=== PATIENT | male | born 1980 | race Hispanic/Latino ===

== ENCOUNTER → 2018-04-14 | Day surgery (SDC) | payer BC ==
[~2018-04-14] VITALS: Ht 160 cm; Wt 81.6 kg
[~2018-04-14] MED LIST: BENZOCAINE 20% SPR 60 ML CAN ONE; FENTANYL CITRATE/PF 100MCG/2 ML INJ ONE; LIDOCAINE HCL 2% LOCAL INJ 5 ML SDV VIAL INJ ONE; PROPOFOL IV EMULSION 10 MG/ML 20 ML VIAL ONE; SODIUM CHLORIDE 0.9% 1000ML 0 ML ONE
[2018-04-14 12:06] LABS: BASOPHILS # (AUTO) 0.1 (0.0-0.1); BASOPHILS % 1.2 % (0.0-1.0); EOSINOPHILS # (AUTO) 0.1 (0.0-0.4); EOSINOPHILS % 1.4 % (0.0-6.0); HEMATOCRIT 44.6 % (38.2-49.6); HEMOGLOBIN 15.2 g/dL (14.0-18.0); LYMPHOCYTES # (AUTO) 1.9 (1.0-3.2); LYMPHOCYTES % 33.1 % (18.0-39.1); MEAN CORPUSCULAR HEMOGLOBIN 30.8 pg (28-32); MEAN CORPUSCULAR HGB CONC 34.1 g/dL (31-35); MEAN CORPUSCULAR VOLUME 90.3 fL (81-99); MONOCYTES # (AUTO) 0.5 (0.2-0.8); NEUTROPHILS # (AUTO) 3.2 (2.1-6.9); NEUTROPHILS % 55.1 % (38.7-80.0); PLATELET COUNT 256 x10e3/uL (140-360); RED BLOOD COUNT 4.94 x10e6/uL (4.3-5.7); RED CELL DISTRIBUTION WIDTH 12.7 % (11.7-14.4)
[2018-04-14 12:20] LABS: INR 1.15; PROTHROMBIN TIME 13.8 seconds (11.9-14.5)
[2018-04-14 12:28] LABS: ALANINE AMINOTRANSFERASE 43 IU/L (0-55); ALBUMIN 4.4 g/dL (3.5-5.0); ALBUMIN/GLOBULIN RATIO 1.2 (0.8-2.0); ALKALINE PHOSPHATASE 88 IU/L (40-150); ANION GAP 14.3 mmol/L (8-16); BLOOD UREA NITROGEN 14 mg/dL (7-26); BUN/CREATININE RATIO 16 (6-25); CARBON DIOXIDE 28 mmol/L (22-29); CHLORIDE 104 mmol/L (98-107); CREATININE, SERUM 0.85 mg/dL (0.72-1.25); EST GLOMERULAR FILTRATION RATE > 60 ML/MIN (60-); GLUCOSE 99 mg/dL (74-118); POTASSIUM 5.3 mmol/L (3.5-5.1); SODIUM 141 mmol/L (136-145)
[2018-04-14 12:30] VITALS: BP 128/87
== END | disposition home or self-care (01) ==
LOC: OR 11:08
PROVIDERS: ATTEND Internal Medicine
DX: I35.0 Nonrheumatic aortic (valve) stenosis (principal); Z53.09 Procedure and treatment not carried out because of other contraindication
CPT/HCPCS: 36415; 80053; 85025; 85610; J2001; J7030

== ENCOUNTER → 2018-04-27 | Day surgery (SDC) | payer BC ==
[2018-04-26 12:14] LABS: BASOPHILS # (AUTO) 0.1 (0.0-0.1); EOSINOPHILS # (AUTO) 0.1 (0.0-0.4); EOSINOPHILS % 0.9 % (0.0-6.0); HEMATOCRIT 43.8 % (38.2-49.6); HEMOGLOBIN 14.8 g/dL (14.0-18.0); LYMPHOCYTES # (AUTO) 1.7 (1.0-3.2); LYMPHOCYTES % 28.8 % (18.0-39.1); MEAN CORPUSCULAR HEMOGLOBIN 30.4 pg (28-32); MEAN CORPUSCULAR HGB CONC 33.8 g/dL (31-35); MEAN CORPUSCULAR VOLUME 89.9 fL (81-99); MONOCYTES # (AUTO) 0.6 (0.2-0.8); MONOCYTES % 10.1 % (4.4-11.3); NEUTROPHILS # (AUTO) 3.4 (2.1-6.9); PLATELET COUNT 230 x10e3/uL (140-360); RED BLOOD COUNT 4.87 x10e6/uL (4.3-5.7); RED CELL DISTRIBUTION WIDTH 12.8 % (11.7-14.4)
[2018-04-26 12:31] LABS: INR 1.15; PROTHROMBIN TIME 13.8 seconds (11.9-14.5)
[2018-04-26 12:38] LABS: ALANINE AMINOTRANSFERASE 42 IU/L (0-55); ALBUMIN 4.2 g/dL (3.5-5.0); ALBUMIN/GLOBULIN RATIO 1.2 (0.8-2.0); ALKALINE PHOSPHATASE 79 IU/L (40-150); ANION GAP 10.1 mmol/L (8-16); BLOOD UREA NITROGEN 13 mg/dL (7-26); BUN/CREATININE RATIO 15 (6-25); CALCIUM 9.7 mg/dL (8.4-10.2); CARBON DIOXIDE 28 mmol/L (22-29); CHLORIDE 103 mmol/L (98-107); CREATININE, SERUM 0.84 mg/dL (0.72-1.25); EST GLOMERULAR FILTRATION RATE > 60 ML/MIN (60-); GLUCOSE 100 mg/dL (74-118); POTASSIUM 4.1 mmol/L (3.5-5.1); SODIUM 137 mmol/L (136-145)
[~2018-04-27] VITALS: Ht 160 cm; Wt 81.6 kg
[~2018-04-27] MED LIST changes: +MIDAZOLAM HCL 2 MG/2 ML VIAL ONE; +PROPOFOL IV EMULSION 10 MG/ML 20 ML VIAL IV ONE; -PROPOFOL IV EMULSION 10 MG/ML 20 ML VIAL ONE; -SODIUM CHLORIDE 0.9% 1000ML 0 ML ONE; +SODIUM CHLORIDE 0.9% 1000ML 1,000 ML ONE
[2018-04-27 15:35] VITALS: BP 123/79
== END | disposition home or self-care (01) ==
LOC: CATH LAB 13:10
PROVIDERS: ATTEND Internal Medicine
DX: Q23.1 Congenital insufficiency of aortic valve (principal); I20.8 Other forms of angina pectoris; Z01.812 Encounter for preprocedural laboratory examination; Z68.31 Body mass index [BMI] 31.0-31.9, adult; Z82.49 Family history of ischemic heart disease and other diseases of the circulatory system
CPT/HCPCS: 36415; 80053; 85025; 85610; 93312; 93320; 93325; J2001; J2250; J7030

== ENCOUNTER → 2018-06-10 | Outpatient (CLI) | payer BC ==
[~2018-06-10] MED LIST changes: -BENZOCAINE 20% SPR 60 ML CAN ONE; -FENTANYL CITRATE/PF 100MCG/2 ML INJ ONE; +IOPAMIDOL 370 MG/ML 200 ML INFUS..BTL INJ ONE; -LIDOCAINE HCL 2% LOCAL INJ 5 ML SDV VIAL INJ ONE; -MIDAZOLAM HCL 2 MG/2 ML VIAL ONE; -PROPOFOL IV EMULSION 10 MG/ML 20 ML VIAL IV ONE; +SODIUM CHLORIDE 0.9% 100 ML 100 ML ONE; -SODIUM CHLORIDE 0.9% 1000ML 1,000 ML ONE
--- NOTE | 2018-06-13 08:18 | Diagnostic Imaging Report ---
CT Angiogram of the chest, with contrast. History: Dilated ascending aorta Comparison: <None available>. TECHNIQUE: Multidetector CT scanning of the chest was performed from the level of the thoracic inlet to the upper abdomen after intravenous contrast. Thoracic aorta protocol was performed. No oral contrast was given. Coronal and sagittal multiplanar reformations were obtained. IV CONTRAST: 100 mL of Isovue 370 RADIATION DOSE: Total DLP: 417.3 mGy*cm Estimated effective dose: (DLP x 0.014 x size factor) mSv Technique: VASCULAR FINDINGS: Aorta and proximal branches: Dilatation of the aortic root and ascending aorta is present without evidence of dissection. A bicuspid aortic valve is present. There is aortic valve calcification. There is no evidence of intramural or periaortic hematoma. The innominate, proximal subclavian, and common carotid arteries are normal in branching order and size. The aortic arch and descending thoracic aorta are normal. Measurements are somewhat limited secondary to motion artifact near the aortic origin. Measurements of the aorta are as follows: 3.4 cm at the sinuses of Valsalva, 3.2 cm at the sinotubular junction Limited evaluation at the mid ascending aorta secondary to motion however estimated to measure 4.1 cm. 3.9 cm in the distal ascending aorta, 2.4 cm in the mid aortic arch, 2.2 cm in the proximal descending aorta, 2.1 cm in the mid descending aorta, 1.5 cm at the level of the diaphragmatic hiatus. ADDITIONAL FINDINGS: LINES/ TUBES: None. LUNGS AND AIRWAYS: The central airways are patent. Minimal dependent atelectasis. Bilateral groundglass nodules are present. These include a 5 mm groundglass nodule in the left upper lobe on series 58, image 15; a 5 mm groundglass nodular opacity in the left lower lobe on image 42; a 4 mm groundglass nodule in the right lower lobe on image 34; and a 4 mm ground glass nodule in the right lower lobe on image 29. There is a calcified granuloma in the right lower lobe. PLEURA: The pleural spaces are clear. HEART AND MEDIASTINUM: The thyroid gland is normal. No mediastinal, hilar or axillary lymphadenopathy. Calcified subcarinal, right perihilar and peribronchial lymph nodes are noted. No cardiomegaly or pericardial effusion. UPPER ABDOMEN: Limited views of the upper abdomen show no abnormality within the visualized spleen, pancreas, or kidneys. The adrenal glands are normal. High density focus in the right hepatic lobe may represent calcified granuloma. Small hiatal hernia. BONES: No acute bony findings. Mild degenerative disc changes. SOFT TISSUES: Unremarkable. IMPRESSION: Bicuspid aortic valve. Somewhat limited evaluation of the ascending aorta due to motion artifact which is ectatic and likely aneurysmal measuring up to approximately 4.1 cm. No evidence of aortic dissection. Bilateral ground glass nodules measuring up to 5 mm, which may be infectious or inflammatory. Comparison with prior imaging or a follow-up chest CT in 3-6 months is suggested for further evaluation. Sequela of prior granulomatous disease with calcified thoracic lymph nodes and pulmonary nodule. Signed by: Dr. Umberto Cunningham MD on 06/13/2018 8:15 AM
== END ==
LOC: CT 15:47
PROVIDERS: ATTEND Internal Medicine
DX: I77.819 Aortic ectasia, unspecified site (principal); R91.8 Other nonspecific abnormal finding of lung field
CPT/HCPCS: 71275; Q9967

== ENCOUNTER → 2018-12-23 | Outpatient (CLI) | payer BC ==
--- NOTE | 2018-12-23 15:50 | Diagnostic Imaging Report ---
EXAM: CT Chest WITHOUT contrast 12/23/2018 2:44 PM INDICATION: ^PULMONARY NODULES COMPARISON: Chest CT, 06/10/2018 TECHNIQUE: Chest was scanned utilizing a multidetector helical scanner from the lung apex through the level of the adrenal glands without administration of IV contrast. Absence of intravenous contrast decreases sensitivity for detection of lymphadenopathy and vascular pathology. Coronal and sagittal reformations were obtained. Routine protocol was performed. Dose modulation, iterative reconstruction, and/or weight based adjustment of the mA/kV was utilized to reduce the radiation dose to as low as reasonably achievable. IV CONTRAST: None RADIATION DOSE: Total DLP: 260.06 mGy*cm Estimated effective dose: (DLP x 0.014 x size factor) mSv COMPLICATIONS: None FINDINGS: LINES/ TUBES: None. LUNGS AND AIRWAYS: Pulmonary nodules, series 3: Right lung: Upper lobe, 5 mm, image 56. Stable Lower lobe, 4 mm, image 69. Stable. Lower lobe, 4 mm, image 81. Stable Left lung: Upper lobe, 5 mm, image 26. Stable Lower lobe, 5 mm, image 88. Stable. Small calcified granuloma again noted in right lower lobe. No new nodules. No pulmonary consolidation or other airspace opacity. Trachea and main bronchi are clear. PLEURA: No pleural effusion, pneumothorax or pleural calcification. HEART AND MEDIASTINUM: The thyroid gland is normal. No mediastinal, hilar or axillary lymphadenopathy. Calcified nodes in the right hilum. The heart is normal in size.. There is no pericardial effusion. Ectasia of the ascending thoracic aorta measuring 4.4 cm (previously reported 4.1 cm). Calcifications seen in the aortic valve. Main pulmonary artery measures 1.9 cm, nondilated. UPPER ABDOMEN: Included portions of the unenhanced liver, spleen, pancreas, adrenals and kidneys show no focal abnormality. BONES: No acute or suspicious bony lesions. SOFT TISSUES: Superficial surrounding soft tissue unremarkable. IMPRESSION: 1. Stable bilateral pulmonary nodules. Consider follow-up noncontrast chest CT in one year to assess stability. 2. Ectasia of the ascending thoracic aorta measuring 4.4 cm, previously reported 4.1 cm. The difference may be due to variability from motion artifact. Continued monitoring suggested. There are aortic valve calcifications noted. Signed by: Dr. Jimy Fiore M.D. on 12/23/2018 3:47 PM
== END ==
LOC: CT 14:35
PROVIDERS: ATTEND Internal Medicine
DX: R91.8 Other nonspecific abnormal finding of lung field (principal)
CPT/HCPCS: 71250

== ENCOUNTER → 2019-06-26 | Outpatient (CLI) | payer BC ==
[~2019-06-26] MED LIST changes: -SODIUM CHLORIDE 0.9% 100 ML 100 ML ONE; +SODIUM CHLORIDE 0.9% 100 ML ONE
[2019-06-26 08:23] LABS: BLOOD UREA NITROGEN 13 mg/dL (7-26); BUN/CREATININE RATIO 16 (6-25); CREATININE, SERUM 0.79 mg/dL (0.72-1.25); EST GLOMERULAR FILTRATION RATE > 60 ML/MIN (60-)
--- NOTE | 2019-06-26 10:17 | Diagnostic Imaging Report ---
CT of the chest, with contrast, 06/26/2019. History: Shortness of breath, chest pain. Comparison: 12/23/2018, 06/12/2018. Technique: Multidetector CT scanning of the chest was performed from the level of the apices to the upper abdomen after intravenous administration of contrast. Coronal and sagittal multiplanar, MIP, and 3-D volume-rendering reformations were obtained. RADIATION DOSE: Total DLP: 391 mGy*cm Dose modulation, iterative reconstruction, and/or weight based adjustment of the mA/kV was utilized to reduce the radiation dose to as low as reasonably achievable. Discussion: Aorta and proximal branches: Dilatation of the ascending thoracic aorta is present without evidence of dissection. There is calcification of the aortic valve. There is no evidence of intramural or periaortic hematoma. There is preservation of the sinotubular junction. The innominate, proximal subclavian, and common carotid arteries are normal in branching order and size. The aortic arch and descending thoracic aorta are normal. Measurements of the aorta are as follows: 4.0 cm at the sinuses of Valsalva, 4.8 cm in the mid ascending aorta, 4.1 cm in the distal ascending aorta, 2.7 cm in the mid aortic arch, 2.1 cm in the proximal descending aorta, 1.9 cm in the mid descending aorta, 1.7 cm at the level of the diaphragmatic hiatus. Chest: The heart and main pulmonary artery are normal in size. The thyroid is unremarkable. Calcified right hilar and subcarinal lymph nodes are present. A calcified granuloma is present in the right lower lobe. Noncalcified 4-5 mm nodules are again seen in both upper and lower lobes without change. There is minimal bibasilar dependent atelectasis. There is no evidence of consolidation or pleural effusion. Limited evaluation of the upper abdomen shows normal adrenal glands. Bones and soft tissues: No acute abnormality. IMPRESSION: 1. Ectatic ascending thoracic aorta. By my measurements of the prior 2 exams, there is no significant change. No evidence of dissection or mediastinal hematoma. 2. Findings of previous granulomas disease and small bilateral pulmonary nodules without significant change. Signed by: Rene Lundy on 06/26/2019 10:14 AM
== END ==
LOC: CT 07:41
PROVIDERS: ATTEND Internal Medicine
DX: I71.2 Thoracic aortic aneurysm, without rupture (principal)
CPT/HCPCS: 36415; 71275; 82565; 84520; J7050; Q9967